=== PATIENT | female | born 1990 | race Caucasian/White ===

== ENCOUNTER 2019-08-24 03:11 | Emergency (ER) | payer SELFPAY ==
--- NOTE | 2019-08-24 04:31 | ER Document Report ---
ED General - General Chief Complaint: Psych Problem Stated Complaint: ALTERED MEDNTAL STATUS Time Seen by Provider: 08/24/19 04:21 Mode of Arrival: Medic Information source: Emergency Med Personnel Cannot obtain history due to: Uncooperative, Altered mental status Notes: Around 29-year-old female arrives by EMS with chief complaint of psychiatric exacerbation with patient jumping out in front of [facility] squad car and EMS was called patient refuses to speak or open eyes. She is well-known to ER staff but at this time patient is a Makenzie Mims. Patient has no ID on her. Security attempted to track her name down on IVC book and July and June.. Unsuccessfully. TRAVEL OUTSIDE OF THE [place] IN LAST 30 DAYS: No - HPI Onset: Just prior to arrival Onset/Duration: Sudden Quality of pain: No pain Severity: None Pain Level: Denies Associated symptoms: None Exacerbated by: Denies Relieved by: Denies - Related Data Allergies/Adverse Reactions: Unable to Assess Allergy (Unverified 08/24/19 03:26) Past Medical History - General Information source: Emergency Med Personnel - Social History Smoking Status: Unknown if Ever Smoked Cigarette use (# per day): No - unknown if smoker Frequency of alcohol use: unknown Drug Abuse: Other - unknown Lives with: Other - unknown Family History: Other - unknown Patient has homicidal ideation: - unable to assess Review of Systems - Review of Systems -: Yes ROS unobtainable due to patient's medical condition Physical Exam - Vital signs Vitals: Temp Pulse Resp BP Pulse Ox 97.7 F 117 H 18 132/84 H 95 08/24/19 03:25 08/24/19 03:25 08/24/19 03:25 08/24/19 03:25 08/24/19 03:25 Interpretation: Tachycardic - General General appearance: Other - Patient sitting in a kai position in room #1 with arms in her lap and eyes closed; - HEENT Head: Normocephalic, Atraumatic Eyes: Normal Pupils: PERRL Pharynx: Normal Neck: Normal - Respiratory Respiratory status: No respiratory distress Chest status: Nontender Breath sounds: Normal Chest palpation: Normal - Cardiovascular Rhythm: Tachycardia Heart sounds: Normal auscultation Murmur: No - Abdominal Inspection: Normal Distension: No distension Bowel sounds: Normal Tenderness: Nontender Organomegaly: No organomegaly - Back Back: Normal - Extremities General upper extremity: Normal inspection General lower extremity: Normal inspection - Neurological Neuro grossly intact: No Orientation: Disoriented to person, Disoriented to place, Disoriented to time, Disoriented to events [place] Coma Scale Verbal: Inappropriate Speech: Other - pt with no speech Motor strength normal: LUE, RUE, LLE, RLE Course - Vital Signs Vital signs: Temp Pulse Resp BP Pulse Ox 97.7 F 117 H 18 132/84 H 95 08/24/19 03:25 08/24/19 03:25 08/24/19 03:25 08/24/19 03:25 08/24/19 03:25 - Laboratory Result Diagrams: 08/24/19 04:57 08/24/19 04:57 Laboratory results interpreted by me: 08/24/19 08/24/19 04:57 04:57 MCH 33.5 H Sodium 134.2 L Salicylates < 1.0 L Acetaminophen < 10 L Critical Care Note - Critical Care Note Total time excluding time spent on procedures (mins): 90 Comments: turned pt over at 0600 to fellow provider change of shift Areil Milian MD Discharge - Discharge Clinical Impression: Catatonic type schizophrenia, chronic state with acute exacerbation, Tachycardia Condition: Fair Disposition: PSYCH HOSP/UNIT
[2019-08-24 05:05] LABS: APPEARANCE,URINE SLIGHTLY-CLOUDY; BILIRUBIN,URINE NEGATIVE (NEGATIVE); COLOR,URINE YELLOW; GLUCOSE, URINE NEGATIVE (NEGATIVE); KETONES,URINE NEGATIVE (NEGATIVE); LEUKOCYTE ESTERASE,URINE NEGATIVE (NEGATIVE); NITRITE,URINE NEGATIVE (NEGATIVE); PROTEIN,URINE NEGATIVE (NEGATIVE); URINE SPECIFIC GRAVITY 1.012; UROBILINOGEN,URINE NEGATIVE mg/dL (<2.0)
[2019-08-24 05:07] LABS: ABSOLUTE BASOPHILS # (AUTO) 0.1 10^3/uL (0.0-0.2); ABSOLUTE EOSINOPHILS # (AUTO) 0.1 10^3/uL (0.0-0.6); ABSOLUTE LYMPHOCYTES (AUTO) 1.9 10^3/uL (0.5-4.7); ABSOLUTE MONOCYTES (AUTO) 0.6 10^3/uL (0.1-1.4); ABSOLUTE NEUT (AUTO) 7.1 10^3/uL (1.7-8.2); BASOPHILS % (AUTO) 0.6 % (0-2); EOSINOPHILS % (AUTO) 1.1 % (0-6); HEMOGLOBIN 14.2 g/dL (12.0-15.5); LYMPHOCYTES % (AUTO) 19.2 % (13-45); MEAN CORPUSCULAR HEMOGLOBIN 33.5 pg (27.0-33.4); MEAN CORPUSCULAR HGB CONC 35.4 g/dL (32.0-36.0); MEAN CORPUSCULAR VOLUME 95 fl (80-97); MONOCYTES % (AUTO) 6.3 % (3-13); PLATELET COUNT 241 10^3/uL (150-450); RED BLOOD COUNT 4.22 10^6/uL (3.72-5.28); RED CELL DISTRIBUTION WIDTH 13.8 % (11.5-14.0); SEGMENTED NEUTROPHILS % (AUTO) 72.8 % (42-78); TOTAL CELLS COUNTED % (AUTO) 100 %; WHITE BLOOD COUNT 9.8 10^3/uL (4.0-10.5)
[2019-08-24 05:14] LABS: URINE AMPHETAMINES SCREEN NEGATIVE; URINE BARBITURATES SCREEN NEGATIVE; URINE BENZODIAZEPINES SCREEN NEGATIVE; URINE COCAINE SCREEN NEGATIVE; URINE MARIJUANA (THC) SCREEN NEGATIVE; URINE METHADONE SCREEN NEGATIVE; URINE PHENCYCLIDINE SCREEN NEGATIVE
[2019-08-24 05:18] LABS: ALBUMIN 4.7 g/dL (3.5-5.0); ALKALINE PHOSPHATASE 72 U/L (38-126); ANION GAP 7 (5-19); ASPARTATE AMINO TRANSFERASE 24 U/L (14-36); BILIRUBIN,TOTAL 0.5 mg/dL (0.2-1.3); BLOOD UREA NITROGEN 14 mg/dL (7-20); CALCIUM 9.4 mg/dL (8.4-10.2); CARBON DIOXIDE 27 mmol/L (22-30); CHLORIDE 100 mmol/L (98-107); GLUCOSE 109 mg/dL (75-110); TOTAL PROTEIN 7.1 g/dL (6.3-8.2)
[2019-08-24 05:21] LABS: ACETAMINOPHEN < 10 ug/mL (10-30); ALCOHOL < 10 mg/dL (NONE DETECTED); SALICYLATE < 1.0 mg/dL (2.0-20.0)
--- NOTE | 2019-08-24 14:13 | PSYCHOLOGICAL NOTE ---
Psych Note - Psych Note Date seen by psych provider: 08/24/19 Time seen by psych provider: 12:30 Psych Note: Patient refuses to engage with clinician. She does not respond to her name being called. She is observed sitting on the stretcher with her head down and legs crossed. She does not move or make any indication she is aware of her surroundings. Attending nurse noted patient also did not respond to touch. This patient is well known to clinician and department. She has alternate chart [id number] Impression/Plan: Patient is recommended for IVC; paperwork is filled out, faxed to overlock operator and placed in patient's chart. Patient presented after attempting to jump in front of moving traffic. She presents catatonic link upon arrival to [facility] ED with fixed haze and does not respond to verbal or tactile stimuli. There are noted healed lacerations mahoney on her left forearm (she has a documented history of engaging in self harm of cutting). Patient has a history of inpatient psychiatric treatment (her last being 07/15/2019) and noncompliance with medication. Her current presentation is congruent with pervious presentations when she is acutely psychotic. Patient is unable t, without care, supervision, and the continued assistance of others not otherwise available, to exercise self-control, judgment, and discretion in the conduct of her daily responsibilities and social relations or to satisfy her need for nourishment, personal or medical care halfway, or self-protection and safety. Dr. Portillo was consulted on the care and management for this patient' attending physician is in agreement with recommendations and disposition.
--- NOTE | 2019-08-24 14:18 | ER Document Report ---
Doctor's Note Notes: 08/24/19 14:18 The patient continues to act catatonic. She has been seen by the behavioral health team. IVC paperwork will be done with attempts to have her placed in a psychiatric facility.
--- NOTE | 2019-08-24 14:27 | EKG REPORT ---
SEVERITY:- ABNORMAL ECG - SINUS TACHYCARDIA LEFT ATRIAL ABNORMALITY MINIMAL ST DEPRESSION : Confirmed by: Pam Rebollar MD 24-Aug-2019 14:27:08
--- NOTE | 2019-08-25 03:03 | ER Document Report ---
Doctor's Note Notes: 08/25/19 03:01 [employer] enforcement has arrived to transport patient to [facility] for inpatient psychiatric care. This MD examined the patient prior to her trans-for. Patient has a depressed affect but is able to voluntarily luc her eyes and avoid direct eye contact with this provider. On a repeat reevaluation just prior to transfer, patient was noted to of turn from a supine position onto right lateral decubitus position and is still avoiding direct eye contact. Patient is not answering questions at this time. Patient appears stable for transfer.
[2019-08-25 03:14] VITALS: BP 115/68
== END 2019-08-25 02:57 ==
LOC: ER 03:11
DX: F20.2 Catatonic schizophrenia (principal); R00.0 Tachycardia, unspecified; R41.82 Altered mental status, unspecified
CPT/HCPCS: 36415; 80053; 80307; 81001; 85025; 93005; 93010; 99291; 99292